=== PATIENT | female | born 1980 | race Two or more races ===

== ENCOUNTER 2024-06-18 10:33 | Outpatient (AMB) | payer MEDICAID, SELFPAY ==
--- NOTE | 2024-06-18 10:37 | ACNOTE_ITS ---
Vital Signs 06/18/24 10:42 Height 1.63 m Height Method Stated Weight 82.611 kg Weight Measurement Method Standing Scale BMI 31.2 BP 110/73 Blood Pressure Source Automatic Cuff Blood Pressure Location Left Upper Arm Position Sitting Respiration 17 Pulse 77 Pulse Source Monitor Temp 98.0 F Temp Source Temporal Artery Scan Pulse Oximetry (%) 99 Oxygen Delivery Method Room Air Allergies/Meds Allergies & Medications Allergies No Known Allergies Allergy (Verified 06/18/24 10:44) Medication Reconciliation No Known Home Medications 01/11/23 [History Confirmed 06/20/24] buspirone 5 mg tablet 5 mg PO BID #60 tabs 06/18/24 [Rx Confirmed 06/20/24] MA Intake Visit Data Collection New Patient or Established: Established Patient (seen at [facility] within 3 years) Seen by Clinical Staff ONLY (RN/DEREJE): No Pain Present Currently: No Pain scale:: 0 Pain Scale Used: Rice-Newsome/Numerical PCP or OBGYN visit in last 3 months: No Hx Now: No Do You Feel Safe at Home: Yes Authorities Contacted: N/A Smoking Status Smoking Status: Never smoker Immunization / Flu Flu Vaccine in the Last 12 Months: No Flu Vaccine Exclusion Criteria: Refused by Patient Past Medical History Past Medical History CARDIAC: Positive Hypercholesterolemia Surgical History SURGICAL: Positive Section Social History SMOKING STATUS: Smoking status: Never smoker Patient Portal Questionaires Social History Tobacco History Smoking Status: Never smoker Domestic Abuse History Do You Feel Safe at Home: Yes Review of Systems Report any current symptoms Only answer those that you have currently: Past Medical History Past Medical History Have you ever been diagnosed with any of the following: Cardiology Problems Hypercholesterolemia: Yes History of Present Illness HPI Narrative Alma is a 43 year female with a past medical history of microcytic anemia, per chart review previous history of hyperlipidemia, and history of generalized anxiety disorder. Patient last seen in office 2022. Patient returned with a chief complain of dizziness . Patient stated two episodes occurred last week. Patient stated she was laying supine and then go up. She describes event as things spinning around her,with increase tachycardia, and increase perspiration. Denied hearing loss, denied positional trigger/bending over, denied history of Benign paroxysmal positional vertigo, or labyrinthitis. Pateint denied any medication use. Patient denied seizure like activity, family in room denied this as well. Patient denied stroke like symptoms such as facial droop or slurred speech. Patient stated she has been drinking plently of water. Patient is under stress as her sister just experienced a hemorrhagic stroke. Prior to pre- syncopal event, patient was feeling fear and worrry about her own health. Patient has been very concern she is also going to develop a stroke and nobody will be able to take care of her family members, specially her children. Patient stated, previous history of panic acttacks with ER visits showing normal EKG results. Previously attending denominational and doing home meditation had help, but these previous episodes of emending doom secondary have been worse. Patient denied shortness of breath or chest pain. Patient did not follow up with OBGYN as recommended on previous note from 2022, stated referral was made for out of town and it was too far of a drive. Last pap smear 8 years ago. Patient denied menorrhagia. Regular menstrual cycle. Never has had a mammogram. Previous Lipid panel in 2022. Review of Systems Review of Systems Narrative Review of Systems: General appearance: NO weight change, NO fatigue, NO weakness, NO fever, NO chills, NO night sweats, No cough Skin: NO rash, NO itching, NO sores, NO moles HEENT: NO Trauma, NO nausea, NO vomiting, NO visual changes, NO blurry vision, NO double vision, NO tinnitus, NO vertigo, NO ear discharge, NO rhinorrhea, NO stuffiness, NO sneezing, NO allergy, NO epistaxis. NO Hoarseness, NO sore throat, NO swollen neck. Cardiac: NO Palpitations, NO dyspnea on exertion, NO orthopnea, NO paroxysmal nocturnal dyspnea, NO edema Respiratory: NO Shortness of Breath, NO Wheezing, NO Cough, NO Sputum, NO hemoptysis GI:NO appetite, NO nausea, NO vomiting, NO dysphagia, NO changes in bowel frequency, NO stool color, NO diarrhea, NO constipation, NO hemetemesis, NO hemorrhoids, NO melena, NO hematechezia, NO abdominal pain, NO jaundice Renal: NO frequency, NO hesitancy, NO urgency, NO hematuria, NO nocturia, NO incontinence MSK: NO muscle weakness, NO gout, NO arthritis, NO muscle stiffness Neuro: NO headaches, NO tremors, NO weakness, NO paralysis, NO seizures, NO loss of consciousness, NO numbness. Hem: NO anemia, NO easy bruising/bleeding, NO petechiae, NO purpura Endo: NO heat/cold intolerance, NO excessive sweating, NO polyuria, NO polydipsia, NO polyphagia, NO thyroid problems, NO diabetes Pysch: NO mood, YES anxiety, NO depression Objective/Exam Narrative Physical exam: Vitals: BP 110/73, HR 77, RR 17 General Appearance: Alert and Orientated x3, well-nourished female who is sitting in exam room Thorax/Lungs: Symmetrical with good expansion. Chest and back non-tender. Lungs resonant to percussion. Breath sounds vesicular without crackles, wheezes, or rhonchi Cardiovascular/Peripheral Vascular: No jugular venous distention noted. S1 and S2 heart sounds regular rhythm, no murmurs or extra heart sounds auscultated. No peripheral edema noted. Abdomen: Bowel sounds are active. No tenderness to deep or light palpation. Assessment & Plan Diagnosis / Problem List (1) Pre-syncope: Status: Acute Assessment & Plan: Patient described two episodes of pre-syncope where patient denied seizure like activity and denied slurred speech or facial droop. Denied head trauma or loss of consciousness. Patient stated during pre-syncope event she felt a sense of doom and excessive worry about medical illness. Given patient's past medical history of generalized anxiety diorder and history of panic attacks, likely Neurally mediated pre-syncope from vasovagal event triggered by fear. DDx: less likely secondary to cardiovascular mediated as S1 and S2 on physical exam w/ regular rate and rhtym, consider echo if probelm persists vs anemia given history of iron loss anemia, consider FOBT based on CBC and OBGYN follow up. Plan: -Buspirone 5 mg BID -TSH, Vitamin D, and CMP (2) Generalized anxiety disorder: Status: Acute Assessment & Plan: TITO score of 14 Plan: -Buspirone 5 mg BID -TSH, Vitamin D, and CMP (3) Hypercholesteremia: Status: Acute Assessment & Plan: Per chart review LDL previously elevated in 2022 with a ASCVD score of 0.4%. Follow up with Lipid Panel. Plan: -Follow up with Lipid Panel (4) Prediabetes: Status: Acute Assessment & Plan: Per chart review, previous A1C in pre-diabetic range. Patient denied polydipsia or polyuria. Plan: -Follow up w/ A1c (5) Iron deficiency anemia: Status: Acute Qualifiers: Iron deficiency anemia type: unspecified iron deficiency Qualified Code(s): D50.9 - Iron deficiency anemia, unspecified Assessment & Plan: Per chart review, previous Iron saturation low and elevated TIBC. Patient denied any blood in stool and denied new episodes of menorrhagia. Plan: -CBC w/ differential -consider FOBT (6) Menorrhagia: Status: Acute Qualifiers: Menorrhagia type: with regular cycle Qualified Code(s): N92.0 - Excessive and frequent menstruation with regular cycle Assessment & Plan: Previously in 2022 patient had a single episode of menorrhagia and denied any since then. Patient last pap smear 8 years ago and has never had a mammography exam. Plan: -OBGYN Referral Orders: Referrals [facility] Willa Tsang MD Additional Assessment Master Problem List Generalized Anxiety Disorder Microcytic Anemia, Iron Deficiency HLD (?) Follow Up: -CMP, CBC, Lipid Panel, A1c, TSH, Vitamin D, Urinalysis -OBGYN Referral for Pap smear and Mammogram Health Maintenance: Pap smear and mammography (w/ OBGYN) Lipid panel, A1c, Scores: TITO 14 - The patient's plan was discussed with attending Dr. Angela Tsang MD PGY1 Internal Medicine Additional Plan Internal Medicine Attending Note: Case discussed with and agree with note and management plan of Resident Physician as per Resident's Note above. Issues of concern for present visit are as follows: Follow-up visit. Patient reports 2 episodes of dizziness. Symptoms started upon arising from a supine position. Noted increase in heart rate as well as sweating. Symptoms lasted for less than a minute. Patient under stress due to illness of family member. Exam benign today. Symptoms possibly vasovagal, possibly stress mediated, possibly orthostatic. At this point, we will observe. Start buspirone for generalized anxiety with elevated TITO score. Recheck labs, patient with previously noted prediabetes and elevated LDL, as well as iron deficiency. Referral to [facility] for well woman care per patient preference. Christofer Miller MD Physician Billing Established Patient Established Patient: E/M Level 3-CPT 12108 Office Procedures [facility] Level of Care Nursing/Assessment Patient Status: Established Patient Nursing Assessment/Reassessment: Medication Reconciliation, Update PMH in EMR and Vital Signs Coordination of Care: Complex Care and Chronic Disease 1-5, Consent,records obtained, informed consent, Education Simp Pt/Fam, Lab and Imaging orders and Staff clarify orders Established Patient Charge Established Patient Point Assignment: 100 Established Patient Point Charge: EP Level 3 (80-115)
[2024-06-18 10:42] VITALS: BP 110/73; PULSE 77; RESP 17; TEMP 36.7; O2SAT 99; BMI 31.2
== END 2024-06-18 12:06 | disposition home or self-care (01) ==
LOC: HODAHC 10:33
PROVIDERS: Supervising Provider Internal Medicine
DX: R55 Syncope and collapse (principal); R42 Dizziness and giddiness; F41.1 Generalized anxiety disorder; R73.03 Prediabetes; D50.9 Iron deficiency anemia, unspecified; N92.0 Excessive and frequent menstruation with regular cycle
CPT/HCPCS: 99213; G0463

== ENCOUNTER 2024-07-04 09:03 | Outpatient (AMB) | payer MEDICAID, SELFPAY ==
--- NOTE | 2024-07-04 11:12 | PD.RESCLINIC ---
Allergies/Meds Allergies & Medications Allergies No Known Allergies Allergy (Verified 07/04/24 11:13) Medication Reconciliation No Known Home Medications 01/11/23 [History Confirmed 07/04/24] buspirone 5 mg tablet 5 mg PO BID #60 tabs 06/18/24 [Rx Confirmed 07/04/24] MA Intake Visit Data Collection New Patient or Established: Established Patient (seen at [facility] within 3 years) Seen by Clinical Staff ONLY (RN/MA): No Pain Present Currently: No Pain scale:: 0 Pain Scale Used: Rice-Newsome/Numerical Unleavened Dough Mixer Required: No PCP or OBGYN visit in last 3 months: Yes Hx Now: No Do You Feel Safe at Home: Yes Authorities Contacted: N/A Smoking Status Smoking Status: Never smoker For Televisit only Telemed Video/Phone Visit: Yes Verbal consent obtained for Telemed visit?: Yes Verbal Consent witness name: VICKY Telemed Video/Phone visit w/Clinical Staff: 21-30 min Immunization / Flu Flu Vaccine in the Last 12 Months: No Flu Vaccine Exclusion Criteria: No Exclusion Criteria Past Medical History Past Medical History CARDIAC: Positive Hypercholesterolemia Surgical History SURGICAL: Positive Section Social History SMOKING STATUS: Smoking status: Never smoker Patient Portal Questionaires Social History Tobacco History Smoking Status: Never smoker Domestic Abuse History Do You Feel Safe at Home: Yes Review of Systems Report any current symptoms Only answer those that you have currently: Past Medical History Past Medical History Have you ever been diagnosed with any of the following: Cardiology Problems Hypercholesterolemia: Yes History of Present Illness HPI Narrative 07/04/2024: Patient is seen by resident physician Dr. Tsang, seen today by me for follow up on lab results via telephone. Labs were reviewed with the patient all found to be within normal limits. A1c was found to be 6.1 and in pre-diabetic range, patient was adviced to make diet modifications such as limiting carb consumption as patient eats tortillas and rice 3x/day as well as exercise. Patient expressed understanding during our telephone conversation. Adviced patient to follow up in 3 months or to walk should she need to come into the office. Assessment & Plan Diagnosis / Problem List (1) Prediabetes: Status: Acute Plan: A1c was found to be 6.1 and in pre-diabetic range, patient was adviced to make diet modifications such as limiting carb consumption as patient eats tortillas and rice 3x/day as well as exercise. Patient expressed understanding during our telephone conversation. Adviced patient to follow up in 3 months. Office Procedures [facility] Level of Care Nursing/Assessment Patient Status: Established Patient Nursing Assessment/Reassessment: Medication Reconciliation and Update PMH in EMR Coordination of Care: Complex Care and Chronic Disease 1-5, Consent,records obtained, informed consent, Education Simp Pt/Fam, Results/Orders obtained and Staff clarify orders Established Patient Charge Established Patient Point Assignment: 75 Telehealth Telemed Phone/Video with patient at home & Dr,PA,MANAGER TRAFFIC: Yes
== END 2024-07-04 12:13 | disposition home or self-care (01) ==
LOC: HODAHC 09:03
PROVIDERS: Supervising Provider Internal Medicine; Visit Provider Student in an Organized Health Care Education/Training Program
DX: Z71.2 Person consulting for explanation of examination or test findings (principal); R73.03 Prediabetes
CPT/HCPCS: 99212; G0463

== ENCOUNTER 2024-07-16 10:40 | Outpatient (AMB) | payer MEDICAID, SELFPAY ==
--- NOTE | 2024-07-16 10:54 | ACNOTE_ITS ---
Allergies/Meds Allergies & Medications Allergies No Known Allergies Allergy (Verified 07/16/24 11:10) Medication Reconciliation No Known Home Medications 01/11/23 [History Confirmed 07/04/24] buspirone 5 mg tablet 5 mg PO BID #60 tabs 07/16/24 [Rx Confirmed 07/16/24] DEREJE Intake Visit Data Collection New Patient or Established: Established Patient (seen at [facility] within 3 years) Seen by Clinical Staff ONLY (RN/MA): No Pain Present Currently: No Pain scale:: 0 Pain Scale Used: Rice-Newsome/Numerical Associate Professor Required: No PCP or OBGYN visit in last 3 months: Yes Hx Now: No Do You Feel Safe at Home: Yes Authorities Contacted: N/A Smoking Status Smoking Status: Never smoker For Televisit only Telemed Video/Phone Visit: Yes Verbal consent obtained for Telemed visit?: Yes Verbal Consent witness name: Carmela Arizmendi MA Telemed Video/Phone visit w/Clinical Staff: 11-20 min Immunization / Flu Flu Vaccine in the Last 12 Months: No Flu Vaccine Exclusion Criteria: No Exclusion Criteria Past Medical History Past Medical History CARDIAC: Positive Hypercholesterolemia Surgical History SURGICAL: Positive Section Social History SMOKING STATUS: Smoking status: Never smoker Patient Portal Questionaires Social History Tobacco History Smoking Status: Never smoker Domestic Abuse History Do You Feel Safe at Home: Yes Review of Systems Report any current symptoms Only answer those that you have currently: Past Medical History Past Medical History Have you ever been diagnosed with any of the following: Cardiology Problems Hypercholesterolemia: Yes History of Present Illness HPI Narrative Alma is a 43 year female with a past medical history of microcytic anemia and active of generalized anxiety disorder who is following on an generalized anxiety disorder that is currently being treated with Buspirone 5 mg PO BID. Patient symptoms have improved with current medication regimen. Decrease in TITO 7- from 14--->4. Patient only experienced one day of generalized worry during the previous week that was debilitating. Patient patient has moved out of the county from [place] to [facility] and in the process of the finding a new PCP and changing [facility]. Patient needs Buspirone changed to [facility]. Review of Systems Review of Systems Narrative Review of Systems: General appearance: NO weight change, NO fatigue, NO weakness, NO fever, NO chills, NO night sweats, No cough Skin: NO rash, NO itching, NO sores, NO moles HEENT: NO Trauma, NO nausea, NO vomiting, NO visual changes, NO blurry vision, NO double vision, NO tinnitus, NO vertigo, NO ear discharge, NO rhinorrhea, NO stuffiness, NO sneezing, NO allergy, NO epistaxis. NO Hoarseness, NO sore throat, NO swollen neck. Cardiac: NO Palpitations, NO dyspnea on exertion, NO orthopnea, NO paroxysmal nocturnal dyspnea, NO edema Respiratory: NO Shortness of Breath, NO Wheezing, NO Cough, NO Sputum, NO hemoptysis GI:NO appetite, NO nausea, NO vomiting, NO dysphagia, NO changes in bowel frequency, NO stool color, NO diarrhea, NO constipation, NO hemetemesis, NO hemorrhoids, NO melena, NO hematechezia, NO abdominal pain, NO jaundice Renal: NO frequency, NO hesitancy, NO urgency, NO hematuria, NO nocturia, NO incontinence MSK: NO muscle weakness, NO gout, NO arthritis, NO muscle stiffness Neuro: NO headaches, NO tremors, NO weakness, NO paralysis, NO seizures, NO loss of consciousness, NO numbness. Hem: NO anemia, NO easy bruising/bleeding, NO petechiae, NO purpura Endo: NO heat/cold intolerance, NO excessive sweating, NO polyuria, NO polydipsia, NO polyphagia, NO thyroid problems, Pre -diabetes Pysch: NO mood, YES anxiety, NO depression Objective/Exam Narrative Physical exam: Tele-visit, no physical completed. Assessment & Plan Diagnosis / Problem List (1) Generalized anxiety disorder: Status: Acute Assessment & Plan: TITO 7 improved for patient from TITO 14-->4 with improvement on Buspirone 5 mg PO BID. Patient overall sounds better and stated decrease episodes of generalized anxiety about different thing, improved sleep, and improved restlessness. Prescription sent to [facility], may not go through due to [facility]. Advised patient to call back if unable to fill prescription. Plan -Continue Buspirone 5 mg PO BID - The patient's plan was discussed with attending Dr. Angela Tsang MD PGY1 Internal Medicine Office Procedures [facility] Level of Care Nursing/Assessment Patient Status: Established Patient Nursing Assessment/Reassessment: Medication Reconciliation and Update PMH in EMR Coordination of Care: Complex Care and Chronic Disease 1-5, Consent,records obtained, informed consent, Education Simp Pt/Fam and Staff clarify orders Established Patient Charge Established Patient Point Assignment: 70 Telehealth Telemed Phone/Video with patient at home & Dr,PA,PATIENT ADMITTING CLERK: Yes
== END 2024-07-16 11:14 | disposition home or self-care (01) ==
LOC: HODAHC 10:40
PROVIDERS: Supervising Provider Internal Medicine
DX: F41.1 Generalized anxiety disorder (principal)
CPT/HCPCS: 99212; G0463